=== PATIENT | male | born 1945 | race Hispanic/Latino ===

== ENCOUNTER 2018-10-08 18:28 | Emergency (ER) | payer MEDICARE ==
[2018-10-08 19:47] LABS: APPEARANCE,URINE Clear (CLEAR); BILIRUBIN,URINE Negative (NEGATIVE); COLOR,URINE Yellow (YELLOW); GLUCOSE, URINE (UA) Negative (NEGATIVE); KETONES,URINE Negative (NEGATIVE); LEUKOCYTE ESTERASE ,URINE Negative (NEGATIVE); NITRATE,URINE Negative (NEGATIVE); OCCULT BLOOD,URINE Trace (NEGATIVE); PROTEIN,URINE Negative (NEGATIVE); UROBILINOGEN,URINE 0.2 mg/dL (0.2-1.0)
[2018-10-08 19:58] LABS: BACTERIA,URINE Rare /HPF (None Seen); RBC,URINE 0-1 /HPF (0-1); SQUAMOUS EPITHELIAL CELL,UR Rare /HPF (0-2); WBC,URINE 0-1 /HPF (0-1)
== END 2018-10-08 20:57 | disposition home or self-care (01) ==
LOC: EDH 18:28
DX: R33.9 Retention of urine, unspecified (principal); R10.30 Lower abdominal pain, unspecified; Z90.49 Acquired absence of other specified parts of digestive tract
CPT/HCPCS: 51702; 81001

== ENCOUNTER 2018-11-16 06:49 | Day surgery (SDC) | payer MEDICARE ==
[2018-11-14 15:05] LABS: BASOPHILS % (AUTO) 0.9 % (0.0-5.0); EOSINOPHILS % (AUTO) 0.9 % (0.0-8.0); HEMATOCRIT 42.3 % (42-54); LYMPHOCYTES % (AUTO) 18.4 % (21.0-51.0); MEAN CORPUSCULAR HEMOGLOBIN 29.5 pg (27.0-33.0); MEAN CORPUSCULAR VOLUME 89.3 fL (79-99); MONOCYTES % (AUTO) 7.9 % (3.0-13.0); NEUTROPHILS % (AUTO) 71.9 % (40.0-77.0); PLATELET COUNT (AUTO) 188 K/uL (130-400); RED BLOOD CELL COUNT(AUTO) 4.74 MIL/uL (4.50-6.20); RED CELL DISTRIBUTION WIDTH 13.9 % (11.0-15.5); WHITE BLOOD COUNT (AUTO) 6.3 K/uL (4.8-10.8)
[2018-11-14 15:17] LABS: CREATININE 1.2 mg/dL (0.5-1.5); POTASSIUM 4.9 mmol/L (3.5-5.1)
[2018-11-15 11:33] VITALS: BP 133/72
[~2018-11-16] VITALS: Ht 172.7 cm; Wt 65.8 kg
[2018-11-16] VITALS (14 sets, daily range): BP systolic 107–148; BP diastolic 63–88
[~2018-11-16 06:49] MED LIST: TAMS-1 PO
[2018-11-16] MEDS ORDERED: LACTATED RINGERS 1000ML 1,000 ML IV ONE (07:53)
[2018-11-16] MEDS: CEFTRIAXONE SODIUM 1 GM IVP ONE ×2 (08:12→10:05)
[2018-11-16] MEDS ORDERED: ROCURONIUM 10MG/1ML SYR 10 MG/ML ML ONE (09:14)
[2018-11-16] MEDS ORDERED: MIDAZOLAM HCL 1 MG/ML 2ML VIAL ONE (09:14)
[2018-11-16] MEDS ORDERED: FENTANYL CITRATE PF 50 MCG/1 ML 5ML AMP IV ONE (09:14)
[2018-11-16] MEDS ORDERED: PROPOFOL 10 MG/ML 20ML VIAL IV ONE (09:14)
[2018-11-16] MEDS ORDERED: GLYCOPYRROLATE 1 MG/5 ML SYRINGE ONE (09:58)
[2018-11-16] MEDS ORDERED: LIDOCAINE PF 2% 5ML ABBOJECT ONE (11:33)
[2018-11-16] MEDS ORDERED: NEOSTIGMINE 5MG/5ML SYR IV ONE (11:33)
[2018-11-16] MEDS ORDERED: OPIUM/BELLADONNA ALKALOIDS 1 EACH SUPP.RECT RC ONE (12:05)
--- NOTE | 2018-11-16 12:50 | NUR ---
PATIENT RECEIVED NEW PT FROM PACU, S/P GREENLIGHT LASER, [address] DRAINING PINK COLOR URINE. PT AWAKE AND ALERT, NO DISTRESS NOTED. DENIES ANY PAIN OR DISCOMFORTS. VS STABLE. FC SECURED TO LEG
[2018-11-16] MEDS ORDERED: PHENAZOPYRIDINE HCL 200 MG TABLET ONE (13:03)
--- NOTE | 2018-11-16 13:15 | NUR ---
DESHPANDE LEG BAG APPLIED AT THIS TIME , DESHPANDE CATH CARE INSTRUCTED TO PT/ PTS DAUGTHER. PT STATED " I HAVE HAD FC IN THE PAST, i AM AWARE OF THE CARE" .
--- NOTE | 2018-11-16 13:30 | NUR ---
dc dc instructions given to pt daughter with rx, instructed on new med regimen and possible side effect. to f/u with Dr. Valencia on nov 19 , fc in place . pt denies any pain or discomforts. patient getting dress will go home once ready. pt denies any pain or discomforts. teds to ble in place.
[2018-11-16] MEDS ORDERED: OPIUM/BELLADONNA ALKALOIDS 1 EACH SUPP.RECT RC SCH (13:45)
[2018-11-16] MEDS ORDERED: PHENAZOPYRIDINE HCL 200 MG TABLET PO SCH (13:45)
== END 2018-11-16 13:35 | disposition home or self-care (01) ==
LOC: DAH 06:49
PROVIDERS: ATTEND Urology
DX: N40.1 Benign prostatic hyperplasia with lower urinary tract symptoms (principal); R33.8 Other retention of urine; R35.1 Nocturia; I10 Essential (primary) hypertension; Z98.890 Other specified postprocedural states; Z79.899 Other long term (current) drug therapy; Z96.0 Presence of urogenital implants
CPT/HCPCS: 36415; 52648; 80048; 85025; 93005; A4218; A4340; A4354; A4358; A4510; A4600; J0696; J2001; J2250; J2704; J2710; J3010; J3490; J7120 ×2